=== PATIENT | female | born 1970 ===

== ENCOUNTER 2023-08-16 06:30 | Outpatient (CLI) | payer OTHER ==
[2023-08-16 07:14] LABS: URINE APPEARANCE Clear; URINE BILIRRUBIN Negative (NEGATIVE); URINE COLOR Yellow; URINE GLUCOSE Negative (NEGATIVE); URINE LEUKOCYTE Trace; URINE NITRATE Negative; URINE PROTEIN Negative (NEGATIVE); URINE UROBILINOGEN 0.2 E.U./dl
[2023-08-16 07:15] LABS: URINE BACTERIA 149.9 uL (0.0-1933); URINE EPITHELIAL CELLS 12.5 uL (0.0-38.8); URINE WBC 16.3 uL (0.0-23.2)
[2023-08-16 07:24] LABS: HEMATOCRIT 33.6 % (36.0-45.00); HEMOGLOBIN 11.6 g/dL (12.0-15.00); MEAN CELL VOLUME 82.5 fL (80.00-100.00); MEAN CORPUSCULAR HEMOGLOBIN 28.4 pg (27.00-32.0); MEAN CORPUSCULAR HGB CONC 34.4 g/dl (32.0-36.0); PLATELET COUNT 225 K/uL (150-450); RED BLOOD COUNT 4.08 M/uL (4.00-6.00); RED CELL DISTRIBUTION WIDTH 13.8 % (11.5-14.5)
[2023-08-16 07:37] LABS: URINE BLOOD TRACE
[2023-08-16 07:48] LABS: ALBUMIN 3.6 gm/dL (3.4-5.0); BILIRUBIN TOTAL 0.81 mg/dL (0.3-1.2); CALCIUM 9.3 mg/dL (8.5-10.1); CHOL HDL RATIO 3.9 (0-5.0); CREATININE SERUM 0.81 mg/dL (0.55-1.02); FREE TRIODOTIRONINE 2.49 pg/ml (2.18-3.98); GFR 74.54; GLOBULINA 3.4 G/DL (2.4-3.5); POTASSIUM 3.88 mEq/L (3.5-5.1); T4 FREE 1.03 NG/ML (0.76-1.46); TSH 1.14 uIU/mL (0.358-3.74)
== END 2023-08-16 06:32 | disposition home or self-care (01) ==
LOC: LAB 06:30
DX: E78.5 Hyperlipidemia, unspecified (principal); Z13.1 Encounter for screening for diabetes mellitus; Z11.4 Encounter for screening for human immunodeficiency virus [HIV]; E55.9 Vitamin D deficiency, unspecified; D50.8 Other iron deficiency anemias; E03.9 Hypothyroidism, unspecified; E56.9 Vitamin deficiency, unspecified; E11.9 Type 2 diabetes mellitus without complications; R53.81 Other malaise; N39.0 Urinary tract infection, site not specified

== ENCOUNTER 2023-08-30 07:42 | Outpatient (CLI) | payer OTHER | END 2023-08-30 07:49 | disposition home or self-care (01) | LOC: SONOGRAMA 07:42 | PROVIDERS: ATTEND General Practice | DX: R10.2 Pelvic and perineal pain (principal); Z90.710 Acquired absence of both cervix and uterus ==

== ENCOUNTER 2023-08-30 08:55 | Outpatient (CLI) | payer OTHER ==
[2023-08-30 10:11] LABS: ob NEGATIVE (NEGATIVE)
== END 2023-08-30 08:57 | disposition home or self-care (01) ==
LOC: LAB 08:55
PROVIDERS: ATTEND General Practice
DX: E78.5 Hyperlipidemia, unspecified (principal); Z13.1 Encounter for screening for diabetes mellitus; Z11.4 Encounter for screening for human immunodeficiency virus [HIV]

== ENCOUNTER 2023-12-23 08:36 | Outpatient (CLI) | payer OTHER | END 2023-12-23 08:43 | disposition home or self-care (01) | LOC: SONOGRAMA 08:36 | PROVIDERS: ATTEND Student in an Organized Health Care Education/Training Program | DX: M25.561 Pain in right knee (principal); M17.11 Unilateral primary osteoarthritis, right knee ==